=== PATIENT | female | born 1935 | race Caucasian/White ===

== ENCOUNTER → 2018-02-20 | Outpatient (CLI) | payer MEDICARE, OTHER | LOC: M.RAD 10:44 | DX: Z12.31 Encounter for screening mammogram for malignant neoplasm of breast (principal) ==

== ENCOUNTER → 2018-04-11 | Outpatient (CLI) | payer MEDICARE, OTHER | LOC: M.ULTRA 09:20 | DX: N83.202 Unspecified ovarian cyst, left side (principal); N95.0 Postmenopausal bleeding ==

== ENCOUNTER → 2018-07-31 | Outpatient (CLI) | payer MEDICARE, OTHER | LOC: M.MRI 16:50 | DX: R90.82 White matter disease, unspecified (principal); R26.89 Other abnormalities of gait and mobility ==

== ENCOUNTER → 2018-12-10 | Outpatient (CLI) | payer MEDICARE, OTHER | LOC: M.ULTRA 10:55 | DX: G45.9 Transient cerebral ischemic attack, unspecified (principal); R42 Dizziness and giddiness ==

== ENCOUNTER → 2019-02-21 | Outpatient (CLI) | payer MEDICARE, OTHER | LOC: M.RAD 10:34 | DX: Z12.31 Encounter for screening mammogram for malignant neoplasm of breast (principal) ==